=== PATIENT | male | born 1965 | race Caucasian/White ===

== ENCOUNTER 2016-07-15 09:00 | Emergency (ER) | payer OTHER ==
[~2016-07-15] VITALS: Ht 172.7 cm; Wt 153.5 kg
[~2016-07-15 09:00] MED LIST: ADVIL,NUPRIN,M200 MG PO; FLOVENT 22120 INHALA IH; LOSARTAN POTAS100 MG PO; NAPROXEN500 MG PO; PREDNISONE20 MG PO; PROAIR HFA8.5 GM IH; PROVENTIL,2.5 MG/3 M IH; SPIRIVA1 INHALATI IH; TESSALON PERLE100 MG PO; VALIUM2 MG PO; ZITHROMAX250 MG PO; [UNRECOGNIZED DRUG - OTHER] PO
[2016-07-15] MEDS ORDERED: OMEPRAZOLE40 M1 PO (09:24)
[2016-07-15] MEDS ORDERED: NORVASC10 MG PO (09:25)
[2016-07-15] MEDS ORDERED: PERCOCET 5/31 TABLET PO (09:25)
[2016-07-15 09:49] LABS: HEMATOCRIT 45.9 % (38.0-50.0); MCHC 32.9 G/DL (30.0-36.0); MCV 91.3 FL (86-99); PLATELET COUNT 284 K/uL (156-360); RBC DIS.WIDTH-CV 12.9 % (11.8-14.6); RBC DIS.WIDTH-SD 42.6 % (39-53); RED BLOOD COUNT 5.03 M/uL (4.00-5.50)
[2016-07-15 10:28] LABS: ANION GAP 8 MEQ/L (2-14); CHLORIDE 96 MEQ/L (99-109); POTASSIUM 4.5 MEQ/L (3.7-5.4); SAMPLE HEMOLYSIS CHECK 0; SAMPLE ICTERIC CHECK 0; SAMPLE LIPEMIA CHECK 0; SODIUM 133 MEQ/L (136-147)
[2016-07-15 10:34] LABS: GFR ESTIMATE (CALCULATED) > 59 mL/min/; GLUCOSE 138 mg/dL (70-99); UREA NITROGEN (BUN) 13 mg/dL (9-23)
[2016-07-15 10:37] LABS: TROP-I INTERPRETATION NEGATIVE; TROPONIN-I < 0.01 ng/mL (0.0-0.30)
[2016-07-15] MEDS ORDERED: ZITHROMAX Z-PA250 MG PO (10:42)
[2016-07-15] MEDS ORDERED: PREDNISONE50 MG PO (10:42)
[2016-07-15 11:08] VITALS: BP 139/118
== END 2016-07-15 11:42 | disposition home or self-care (01) ==
LOC: EME 09:00
PROVIDERS: Emergency Medicine
DX: J44.1 Chronic obstructive pulmonary disease with (acute) exacerbation (principal); J20.9 Acute bronchitis, unspecified; J44.0 Chronic obstructive pulmonary disease with (acute) lower respiratory infection; F17.200 Nicotine dependence, unspecified, uncomplicated; I10 Essential (primary) hypertension; E78.5 Hyperlipidemia, unspecified; E11.9 Type 2 diabetes mellitus without complications; Z71.6 Tobacco abuse counseling
CPT/HCPCS: 71010; 80048; 84484; 85027; 93005; 99281; 99285; J7512

== ENCOUNTER 2017-07-04 17:35 | Inpatient (IN) | payer OTHER ==
[~2017-07-04] VITALS: Ht 172.7 cm; Wt 157.3 kg
[~2017-07-04 17:35] MED LIST changes: +NORVASC10 MG PO; +OMEPRAZOLE40 M1 PO; +PERCOCET 5/31 TABLET PO; +PREDNISONE50 MG PO; +ZITHROMAX Z-PA250 MG PO
[2017-07-04 18:56] LABS: HEMATOCRIT 42.6 % (38.0-50.0); MCH 30.4 PG (29.0-34.0); MCHC 35.2 G/DL (30.0-36.0); MCV 86.2 FL (86-99); PLATELET COUNT 256 K/uL (156-360); RBC DIS.WIDTH-CV 13.3 % (11.8-14.6); RBC DIS.WIDTH-SD 41.5 % (39-53); RED BLOOD COUNT 4.94 M/uL (4.00-5.50); WHITE BLOOD COUNT 8.3 K/uL (4.1-10.2)
[2017-07-04 19:11] LABS: CHLORIDE 87 mEq/L (99-109); POTASSIUM 4.3 mEq/L (3.7-5.4); SODIUM 123 mEq/L (136-147)
[2017-07-04 19:13] LABS: GLUCOSE 140 mg/dL (70-99)
[2017-07-04 19:16] LABS: CREATININE 0.9 mg/dL (0.6-1.3); GFR ESTIMATE (CALCULATED) > 59 mL/min/ (58.99-99999)
[2017-07-04 19:17] LABS: UREA NITROGEN (BUN) 12 mg/dL (9-23)
[2017-07-04 19:25] LABS: TROP-I INTERPRETATION NEGATIVE; TROPONIN-I < 0.01 ng/mL (0.0-0.30)
[2017-07-04 20:20] LABS: MAGNESIUM 1.8 mg/dL (1.3-2.7)
[2017-07-04] MEDS ORDERED: IBUPROFEN800 MG PO (23:24)
[2017-07-04] MEDS ORDERED: LOSARTAN-HCTZ1 EAC1 PO (23:25)
[2017-07-04] MEDS ORDERED: AMLODIPINE BESY10 MG PO (23:25)
[2017-07-04] MEDS ORDERED: AMOX TR-K CLV1 EAC4 PO (23:27)
[2017-07-04] MEDS ORDERED: ENDOCET 5-3251 EACH PO (23:28)
[2017-07-04] MEDS ORDERED: COMBIVENT RESPIM4 GM IH (23:29)
[2017-07-04] MEDS ORDERED: VENTOLIN HFA18 GM IH (23:29)
[2017-07-04] MEDS ORDERED: SPIRIVA RESPIMAT4 G1 IH (23:30)
[2017-07-04] MEDS ORDERED: ATROVENT H200 INHALA IH (23:31)
[2017-07-04] MEDS ORDERED: ALBUTEROL2.5 MG/3 M IH (23:33)
[2017-07-04] MEDS ORDERED: VITAMIN D35000 UNIT PO (23:33)
[2017-07-04] MEDS ORDERED: VITAMIN B COMP1 EACH PO (23:35)
[2017-07-05 01:38] LABS: TROP-I INTERPRETATION NEGATIVE; TROPONIN-I < 0.01 ng/mL (0.0-0.30)
[2017-07-05 02:28] VITALS: BP 164/78
[2017-07-05 02:42] VITALS: BP 168/74
[2017-07-05 07:57] VITALS: BP 139/85
[2017-07-05 10:41] LABS: HEMATOCRIT 44.7 % (38.0-50.0); MCH 29.2 PG (29.0-34.0); MCHC 33.6 G/DL (30.0-36.0); PLATELET COUNT 245 K/uL (156-360); RBC DIS.WIDTH-CV 13.4 % (11.8-14.6); RBC DIS.WIDTH-SD 42.7 % (39-53); RED BLOOD COUNT 5.14 M/uL (4.00-5.50); WHITE BLOOD COUNT 9.1 K/uL (4.1-10.2)
[2017-07-05 11:24] LABS: ALBUMIN 4.3 G/DL (3.2-4.8); ALKALINE PHOSPHATASE 58 IU/L (3-129); ALT (GPT) 56 IU/L (3-49); AST (GOT) 31 IU/L (2-34); CHLORIDE 88 MEQ/L (99-109); CREATININE 0.8 MG/DL (0.6-1.3); GFR ESTIMATE (CALCULATED) > 59 mL/min/ (58.99-99999); POTASSIUM 4.5 MEQ/L (3.7-5.4); SODIUM 125 MEQ/L (136-147); TOTAL BILIRUBIN 0.4 MG/DL (0.0-1.0); TOTAL PROTEIN 7.1 G/DL (6.4-8.3); UREA NITROGEN (BUN) 12 mg/dL (9-23)
[2017-07-05 11:29] LABS: GLUCOSE 261 mg/dL (70-99)
[2017-07-05 12:34] VITALS: BP 148/86
[2017-07-05 16:11] VITALS: BP 145/85
[2017-07-05 19:25] VITALS: BP 133/79
[2017-07-06 00:57] VITALS: BP 144/80
[2017-07-06 03:32] VITALS: BP 146/79
[2017-07-06 07:35] VITALS: BP 132/77
[2017-07-06 09:31] LABS: CHLORIDE 93 MEQ/L (99-109); CREATININE 0.9 MG/DL (0.6-1.3); GFR ESTIMATE (CALCULATED) > 59 mL/min/ (58.99-99999); GLUCOSE 202 mg/dL (70-99); POTASSIUM 4.8 MEQ/L (3.7-5.4); UREA NITROGEN (BUN) 15 mg/dL (9-23)
[2017-07-06 09:33] LABS: SODIUM 132 MEQ/L (136-147)
[2017-07-06 11:08] VITALS: BP 132/62
[2017-07-06 11:24] LABS: HEMOGLOBIN A1c (GLYCOHEMOGLOB) 7.2 % (Below 5.7)
[2017-07-06 13:00] LABS: APPEARANCE CLEAR ((CLEAR)); BILIRUBIN NEGATIVE; BLOOD NEGATIVE; COLOR YELLOW ((YELLOW)); GLUCOSE (STRIP) >=500; KETONES NEGATIVE; LEUKOCYTES NEGATIVE; NITRITE NEGATIVE; PROTEIN (STRIP) NEGATIVE; SPECIFIC GRAVITY 1.012 (1.000-1.030); UCUL ADDED? NO; UROBILINOGEN 0.2 MG/DL (0.2-1.0)
[2017-07-06 18:49] VITALS: BP 138/83
[2017-07-06 22:59] VITALS: BP 108/63
[2017-07-07 03:53] VITALS: BP 124/68
[2017-07-07 07:29] LABS: ALBUMIN 3.8 G/DL (3.2-4.8); ALKALINE PHOSPHATASE 52 IU/L (3-129); ALT (GPT) 55 IU/L (3-49); AST (GOT) 35 IU/L (2-34); CHLORIDE 95 MEQ/L (99-109); CREATININE 0.9 MG/DL (0.6-1.3); GFR ESTIMATE (CALCULATED) > 59 mL/min/ (58.99-99999); GLUCOSE 173 mg/dL (70-99); POTASSIUM 4.9 MEQ/L (3.7-5.4); SODIUM 133 MEQ/L (136-147); TOTAL PROTEIN 6.6 G/DL (6.4-8.3); UREA NITROGEN (BUN) 19 mg/dL (9-23)
[2017-07-07 07:38] VITALS: BP 133/75
[2017-07-07 07:40] LABS: TOTAL BILIRUBIN 0.5 MG/DL (0.0-1.0)
[2017-07-07 07:47] LABS: BASOPHIL (%) 0.1 % (0-1); EOSINOPHIL (%) 0 % (0-5); HEMATOCRIT 43.5 % (38.0-50.0); HEMOGLOBIN 14.2 G/DL (12.5-16.6); IMMATURE GRANULOCYTE (%) 0.7 % (0.0-0.7); LYMPHOCYTE (%) 3.7 % (15-42); LYMPHOCYTE COUNT 0.5 K/uL (1.0-2.8); MCH 29.8 PG (29.0-34.0); MCHC 32.6 G/DL (30.0-36.0); MCV 91.4 FL (86-99); MONOCYTE (%) 5.7 % (3-12); MONOCYTE COUNT 0.8 K/uL (0-0.8); NEUTROPHIL (%) 89.8 % (45-76); NEUTROPHIL COUNT 13.2 K/uL (1.8-6.4); PLATELET COUNT 262 K/uL (156-360); RBC DIS.WIDTH-CV 13.9 % (11.8-14.6); RBC DIS.WIDTH-SD 47.2 % (39-53); RED BLOOD COUNT 4.76 M/uL (4.00-5.50); WHITE BLOOD COUNT 14.7 K/uL (4.1-10.2)
[2017-07-07] MEDS ORDERED: PREDNISONE10 MG PO (10:38)
[2017-07-07] MEDS ORDERED: FOLIC ACID1 MG PO (10:38)
[2017-07-07] MEDS ORDERED: Thiamine,Vitamin B1 PO (10:38)
[2017-07-07] MEDS ORDERED: COZAAR100 MG PO (10:38)
[2017-07-07] MEDS ORDERED: DULERA 100 MCG/13 GM IH (10:38)
[2017-07-07] MEDS ORDERED: LEVAQUIN750 MG PO (10:38)
[2017-07-07] MEDS ORDERED: NICOTINE PATCH1 EAC2 TD (10:38)
[2017-07-07] MEDS ORDERED: METFORMIN HCL500 MG PO (10:39)
[2017-07-07 12:14] VITALS: BP 144/81
== END 2017-07-07 13:28 | disposition home or self-care (01) | DRG 190 ==
LOC: EME 17:35 → EDOF 07-05 00:23 → ENRESERV 07-05 00:32 → EDOF 07-05 00:39 → 5EAST 07-05 00:39 → ENRESERV 07-05 00:59 → 4EAST 07-05 02:17 → ENRESERV 07-05 22:14 → 5EAST 07-06 00:21
PROVIDERS: Hospitalist
DX: J44.0 Chronic obstructive pulmonary disease with (acute) lower respiratory infection (principal); J96.01 Acute respiratory failure with hypoxia; I10 Essential (primary) hypertension; R73.03 Prediabetes; F17.200 Nicotine dependence, unspecified, uncomplicated; J44.1 Chronic obstructive pulmonary disease with (acute) exacerbation; F12.90 Cannabis use, unspecified, uncomplicated; Z71.6 Tobacco abuse counseling; R55 Syncope and collapse; E87.1 Hypo-osmolality and hyponatremia; R91.1 Solitary pulmonary nodule; J20.9 Acute bronchitis, unspecified; E66.01 Morbid (severe) obesity due to excess calories; R05 Cough; G47.33 Obstructive sleep apnea (adult) (pediatric); J84.10 Pulmonary fibrosis, unspecified; Z79.899 Other long term (current) drug therapy; R73.9 Hyperglycemia, unspecified; Z68.43 Body mass index [BMI] 50.0-59.9, adult
CPT/HCPCS: 71046; 71275; 80048; 80053; 81003; 82948; 83036; 83735; 84484; 85025; 85027; 93005; 94640; 94640 76; 94799; 99202; 99281; 99285; J0692; J1644; J1815; J1956; J2920; J2930; J3010; J3475; J7030